=== PATIENT | female | born 1940 | race Caucasian/White ===

== ENCOUNTER 2018-08-21 05:31 | Inpatient (IN) | payer MEDICARE, BC ==
[2018-08-10 11:03] LABS: BASOPHILS # (AUTO) 0.1 X10'3 (0-0.2); BASOPHILS % (AUTO) 0.7 % (0-1); EOSINOPHILS # (AUTO) 0.4 X10'3 (0-0.9); EOSINOPHILS % (AUTO) 4.1 % (0-6); LYMPHOCYTES # (AUTO) 2.1 X10'3 (1.1-4.8); LYMPHOCYTES % (AUTO) 23.1 % (21-51); MEAN CORPUSCULAR HGB CONC 33.2 % (33.0-36.5); MEAN CORPUSCULAR VOLUME 90.2 FL (78-98); MEAN PLATELET VOLUME 10.3 FL (7.4-10.4); MONOCYTES # (AUTO) 0.6 X10'3 (0-0.9); NEUTROPHILS # (AUTO) 5.8 X10'3 (1.8-7.7); NEUTROPHILS % (AUTO) 65.1 % (42-75); PRE OP HEMATOCRIT 50.7 % (35.0-45.0); PRE OP HEMOGLOBIN 16.8 g/dL (12.0-16.0); PRE OP PLATELET COUNT 194 X10'3 (140-440); RED BLOOD COUNT 5.62 X10'6 (4.20-5.60); RED CELL DISTRIBUTION WIDTH 14.4 % (11.5-14.5)
[2018-08-10 11:11] LABS: CLARITY,URINE CLEAR (Clear); COLOR,URINE YELLOW (Yellow); GLUCOSE, URINE NEGATIVE (Neg); KETONES,URINE NEGATIVE (Neg); LEUKOCYTE ESTERASE ,URINE NEGATIVE (Neg); NITRITES, URINE NEGATIVE (Neg); OCCULT BLOOD,URINE TRACE-INTACT (Neg); PROTEIN,URINE NEGATIVE (Neg); UA COLLECTION TYPE CLN CATCH MIDSTREAM; UROBILINOGEN,URINE 0.2 E.U/dL (0.2-1.0)
[2018-08-10 11:18] LABS: BACTERIA,URINE FEW /HPF (Neg); RBC,URINE 0-2 /HPF (0-2); SQUAMOUS EPITHELIAL CELL,UR FEW /LPF (FEW); WBC,URINE 0-4 /HPF (0-4)
[2018-08-10 11:19] LABS: ALBUMIN 3.9 G/DL (3.4-5.0); ALBUMIN/GLOBULIN RATIO 1.1 (1.1-1.5); ALKALINE PHOSPHATASE 111 IU/L (46-116); BLOOD UREA NITROGEN 10 MG/DL (7-18); BUN/CREATININE RATIO 11.6 (6.6-38.0); CALCIUM 9.2 MG/DL (8.5-10.1); CHLORIDE 103 MMOL/L (99-107); CREATININE 0.86 MG/DL (0.40-0.90); PRE OP ALT 25 U/L (30-65); PRE OP ANION GAP 12 (8-16); PRE OP AST 16 U/L (10-37); PRE OP BILIRUB, TOTAL 0.6 MG/DL (0.0-1.0); PRE OP GLUCOSE 132 MG/DL (70-104); PRE OP SODIUM 139 MMOL/L (135-145); TOTAL CARBON DIOXIDE 24.1 MMOL/L (24-32); TOTAL PROTEIN 7.6 G/DL (6.4-8.2); eGFR 64 ML/MIN
[2018-08-10 11:36] LABS: PRE OP PROTIME 10.2 SECONDS (9.0-12.0)
[2018-08-21] VITALS (16 sets, daily range): BP systolic 96–129; BP diastolic 53–76
[~2018-08-21] VITALS: Ht 167.6 cm; Wt 86.2 kg
[~2018-08-21 05:31] MED LIST: CHOL10002 PO; VITA0.4T2 PO; acetaminophen 325mg tablet PO ONE; albuterol 2.5 MG/3 ML nebule NEB ONE; cefazolin/dext.iso 2gm/50ml 50 ML IV ONE; celeCOXIB 100mg capsule PO ONE; famotidine 20mg tablet PO ONE; gabapentin 300mg capsule PO ONE; oxyCODONE SR 10mg (sust. release) tab PO ONE; ringers solution, lacted 1,000 ML IV SCH; tranexamic acid inj. 1,500 MG in normal saline 100ml IV soln 85 ML IV ONE
[2018-08-21] MEDS ORDERED: LIDOcaine 1% (10mg/ml) 2ml vial ONE (06:04)
[2018-08-21] MEDS ORDERED: ROPIVAcaine 0.5% (5mg/ml) 30ml vial ONE ×2 (06:51→07:17)
[2018-08-21] MEDS ORDERED: VANCOMYCIN INJ 1000 MG in NORMAL SALINE 250ml IV.SOLN IV ONE (07:00)
[2018-08-21] MEDS ORDERED: bacitracin inj 150,000 UNIT in sodium chloride irrig. sol 3,000 ML IR ONE (07:00)
[2018-08-21] MEDS ORDERED: proCHLORperazine 10 MG/2 ml inj IV PRN (07:05)
[2018-08-21] MEDS ORDERED: ondansetron/PF 4mg/2ml inj IV PRN ×2 (07:05→09:40)
[2018-08-21] MEDS ORDERED: meperidine/PF 25mg/ml syringe IV PRN ×3 (07:05)
[2018-08-21] MEDS ORDERED: morphine 4 MG/ML inj SYRINge IV PRN ×2 (07:05)
[2018-08-21] MEDS ORDERED: ringers solution, lacted 1,000 ML IV SCH (07:05)
[2018-08-21] MEDS ORDERED: tetracaine 1% (10mg/ml) pres. free inj. ONE (07:16)
[2018-08-21] MEDS ORDERED: cloNIDine hcl/PF 100mcg/ml inj ONE (07:16)
[2018-08-21] MEDS ORDERED: MIDAZolam 1mg/ml 10ml vial ONE (07:19)
[2018-08-21] MEDS ORDERED: fentaNYL/PF 50MCG/1 ML 2ML syringe ONE (07:19)
[2018-08-21] MEDS ORDERED: ePHEDrine 50MG/ML INJ. ONE (07:38)
[2018-08-21] MEDS ORDERED: ceFAZolin 1000mg inj ONE (08:55)
[2018-08-21] MEDS ORDERED: magnesium hydroxide 30ml (MOM) UD suspension PO PRN (09:40)
[2018-08-21] MEDS ORDERED: bisacodyl 10mg suppository rectal RC PRN (09:40)
[2018-08-21] MEDS ORDERED: diphenhydrAMINE 25mg capsule PO PRN ×2 (09:40)
[2018-08-21] MEDS ORDERED: oxyCODONE/APAP 5-325mg tablet PO PRN (09:40)
[2018-08-21] MEDS ORDERED: dextrose 50%-water 50ml dispensing syringe IV PRN ×2 (09:40)
[2018-08-21] MEDS ORDERED: dextrose ORAL solution 15 GM/59 ML bottle PO PRN ×2 (09:40)
[2018-08-21] MEDS ORDERED: MESSAGE TO PHARMACY PO ONE (09:40)
[2018-08-21] MEDS ORDERED: acetaminophen 325mg tablet PO PRN (09:40)
[2018-08-21] MEDS ORDERED: glucagon, human recombinant 1mg kit SUBCUT PRN (09:40)
[2018-08-21] MEDS ORDERED: insulin Lispro (HumaLOG) vial - multi-dose SQ SCH (09:40)
--- NOTE | 2018-08-21 09:45 | NUR ---
Received from OR via BED , accompanied by Anesthesiologist DR MARCUM and report given by Anesthesiolgist. PATIENT WAKING UP, DENIES PAIN, V/S WNL, NEUROVASCULAR CHECKS INTACT, 20G PIV LUE , DRESSING TO RIGHT KNEE CDI W/ COLD POWDER PACK AND IMMOBILIZER BRACE W/ SCD ON. F/C DRAINING CLEAR YELLOW URINE. SENSATION T-10.
--- NOTE | 2018-08-21 10:45 | NUR ---
PATIENT A&OX4, DENIES PAIN, V/S WNL, NEUROVASCULAR CHECKS INTACT, 20G PIV LUE , DRESSING TO RIGHT KNEE CDI W/ COLD POWDER PACK AND IMMOBILIZER BRACE W/ SCD ON. F/C DRAINING CLEAR YELLOW URINE. SENSATION T-11. PATIENT TAKEN TO WITH ALL BELONGINGS AND HOOKED UP TO MONITORS IN ROOM AND REPORT GIVEN TO CHOCOLATE DIPPER WHO HAS TAKEN OVER PATIENT CARE.
[2018-08-21] MEDS: gabapentin 300mg capsule PO SCH ×2 (13:00→21:12)
[2018-08-21] MEDS: potassium cl 20mEq in 1/2 NS 1,000 ML IV SCH ×2 (13:23→17:34)
[2018-08-21] MEDS: ceFAZolin 1GM/D5W- ADD-VANTAGE 50 ML IV SCH ×2 (15:13→23:42)
[2018-08-21] MEDS: HYDROmorphone 1 mg/ml syringe IV PRN ×2 (15:13→19:31)
[2018-08-21] MEDS: oxyCODONE/APAP 5-325mg tablet PO PRN (16:17)
[2018-08-21] MEDS: ascorbic acid 500mg tablet PO SCH (19:31)
[2018-08-21] MEDS ORDERED: vancomycin/NS 1 GM ADD-VANTAGE 250 ML IV SCH (20:00)
[2018-08-21] MEDS: sennosides 8.6mg tablet PO SCH (21:00)
[2018-08-21] MEDS: insulin glargine (Lantus) pen - multi-dose SQ SCH (21:00)
[2018-08-22] MEDS: oxyCODONE/APAP 5-325mg tablet PO PRN ×4 (01:16→19:48)
[2018-08-22] MEDS: potassium cl 20mEq in 1/2 NS 1,000 ML IV SCH ×3 (01:23→17:47)
[2018-08-22] MEDS: HYDROmorphone 1 mg/ml syringe IV PRN ×2 (03:49→16:53)
--- NOTE | 2018-08-22 06:19 | NUR ---
Problems reprioritized. Patient report given, questions answered & plan of care reviewed with leanna Samaniego.
[2018-08-22 06:29] LABS: ANION GAP 9 (8-16); CHLORIDE 99 MMOL/L (99-107); POTASSIUM 4.6 MMOL/L (3.5-5.1); SODIUM 134 MMOL/L (135-145); TOTAL CARBON DIOXIDE 26.5 MMOL/L (24-32)
[2018-08-22 06:31] LABS: INR 1.7 INR; PROTHROMBIN TIME 16.4 SECONDS (9.0-12.0)
[2018-08-22 06:52] LABS: BASOPHILS % (AUTO) 0.3 % (0-1); EOSINOPHILS % (AUTO) 0 % (0-6); HEMATOCRIT 38.3 % (35.0-45.0); HEMOGLOBIN 13.3 g/dl (12.0-16.0); MEAN CORPUSCULAR HEMOGLOBIN 31.4 PG (27.0-31.0); MEAN CORPUSCULAR HGB CONC 34.7 % (33.0-36.5); MEAN CORPUSCULAR VOLUME 90.4 FL (78-98); MEAN PLATELET VOLUME 11.3 FL (7.4-10.4); MONOCYTES # (AUTO) 0.9 X10'3 (0-0.9); MONOCYTES % (AUTO) 7.8 % (2-12); NEUTROPHILS # (AUTO) 9.3 X10'3 (1.8-7.7); NEUTROPHILS % (AUTO) 82.9 % (42-75); PLATELET COUNT 184 X10'3 (140-440); RED BLOOD COUNT 4.24 X10'6 (4.20-5.60); RED CELL DISTRIBUTION WIDTH 13.3 % (11.5-14.5); WHITE BLOOD COUNT 11.2 X10'3 (4.5-11.0)
[2018-08-22 07:16] VITALS: BP 112/62
[2018-08-22] MEDS: gabapentin 300mg capsule PO SCH ×3 (07:56→20:48)
[2018-08-22] MEDS: multivitamins, therapeutics tablet PO SCH (07:56)
[2018-08-22] MEDS: ascorbic acid 500mg tablet PO SCH ×2 (07:56→19:47)
[2018-08-22] MEDS ORDERED: warfarin 3mg tablet PO ONE (10:00)
[2018-08-22 10:29] LABS: INR 1.8 INR; PROTHROMBIN TIME 17.6 SECONDS (9.0-12.0)
[2018-08-22 12:06] VITALS: BP 123/63
--- NOTE | 2018-08-22 14:27 | NUR ---
Joint replacement consult: Pt PO 100% carb controlled diet meeting wound healing needs. Good PO given age. No nutrition concerns at this time. Addendum: 08/22/18 at [address] Amended: Links added.
[2018-08-22 15:07] VITALS: BP 123/65
[2018-08-22 18:00] VITALS: BP 120/59
--- NOTE | 2018-08-22 18:18 | NUR ---
Patient in room [facility] 4014. I have received report from leanna Samaniego and had the opportunity to ask questions and assume patient care.
[2018-08-22] MEDS: celeCOXIB 100mg capsule PO SCH (19:48)
[2018-08-22] MEDS: sennosides 8.6mg tablet PO SCH (20:38)
[2018-08-22] MEDS: insulin glargine (Lantus) pen - multi-dose SQ SCH (21:00)
[2018-08-22 22:00] VITALS: BP 130/73
[2018-08-23] MEDS: oxyCODONE/APAP 5-325mg tablet PO PRN ×3 (01:09→10:19)
[2018-08-23] MEDS: potassium cl 20mEq in 1/2 NS 1,000 ML IV SCH (01:36)
[2018-08-23 06:00] VITALS: BP 112/63
[2018-08-23 06:16] LABS: INR 1.6 INR; PROTHROMBIN TIME 16.3 SECONDS (9.0-12.0)
[2018-08-23 06:19] LABS: BASOPHILS % (AUTO) 0.6 % (0-1); EOSINOPHILS # (AUTO) 0.1 X10'3 (0-0.9); EOSINOPHILS % (AUTO) 1.9 % (0-6); HEMATOCRIT 36.6 % (35.0-45.0); HEMOGLOBIN 12.6 g/dl (12.0-16.0); LYMPHOCYTES # (AUTO) 1.3 X10'3 (1.1-4.8); LYMPHOCYTES % (AUTO) 19.6 % (21-51); MEAN CORPUSCULAR HEMOGLOBIN 31.3 PG (27.0-31.0); MEAN CORPUSCULAR HGB CONC 34.5 % (33.0-36.5); MEAN CORPUSCULAR VOLUME 90.7 FL (78-98); MEAN PLATELET VOLUME 10.6 FL (7.4-10.4); MONOCYTES # (AUTO) 0.7 X10'3 (0-0.9); NEUTROPHILS # (AUTO) 4.5 X10'3 (1.8-7.7); NEUTROPHILS % (AUTO) 67.9 % (42-75); PLATELET COUNT 136 X10'3 (140-440); RED BLOOD COUNT 4.03 X10'6 (4.20-5.60); RED CELL DISTRIBUTION WIDTH 13.9 % (11.5-14.5); WHITE BLOOD COUNT 6.6 X10'3 (4.5-11.0)
--- NOTE | 2018-08-23 06:29 | NUR ---
Problems reprioritized. Patient report given, questions answered & plan of care reviewed with FILIPPO HERNANDEZ.
[2018-08-23] MEDS ORDERED: ASPI-1264 PO (07:53)
[2018-08-23] MEDS: celeCOXIB 100mg capsule PO SCH (08:48)
[2018-08-23] MEDS: gabapentin 300mg capsule PO SCH (08:48)
[2018-08-23] MEDS: multivitamins, therapeutics tablet PO SCH (08:48)
[2018-08-23] MEDS: ascorbic acid 500mg tablet PO SCH (08:48)
[2018-08-23] MEDS ORDERED: acetaminophen 325mg tablet PO PRN (09:40)
[2018-08-23] MEDS ORDERED: warfarin 3mg tablet PO ONE (10:00)
== END 2018-08-23 11:45 | disposition home health service (06) | DRG 470 ==
LOC: PAS IN 05:31 → EDSTATUS 07:30 → ORTHO 4S 10:45
PROVIDERS: ADMIT Specialist; ATTEND Specialist
PROC: 3E0T3BZ Introduction of Anesthetic Agent into Peripheral Nerves and Plexi, Percutaneous Approach (ICD-10-PCS; 2018-08-21)
PROC: 0MNN0ZZ Release Right Knee Bursa and Ligament, Open Approach (ICD-10-PCS; 2018-08-21)
PROC: 0SRC0J9 Replacement of Right Knee Joint with Synthetic Substitute, Cemented, Open Approach (ICD-10-PCS; principal; 2018-08-21 07:18)
DX: M17.11 Unilateral primary osteoarthritis, right knee (principal); E11.9 Type 2 diabetes mellitus without complications; Z96.652 Presence of left artificial knee joint; E66.9 Obesity, unspecified; Z90.710 Acquired absence of both cervix and uterus; Z98.42 Cataract extraction status, left eye; Z98.41 Cataract extraction status, right eye; Z79.899 Other long term (current) drug therapy; Z87.891 Personal history of nicotine dependence; Z68.30 Body mass index [BMI] 30.0-30.9, adult
CPT/HCPCS: 36415; 71046; 73560; 80051; 80053; 81001; 82948; 83036; 85025; 85610; 85730; 87070; 97110; 97116; 97161; 97530; A6449; A6455; A7000; C1713; C1758; C1776; G0378; J0690; J0735; J1170; J1815; J2250; J2405; J2795; J3010; J3370; J3490; J7030; J7120